=== PATIENT | female | born 1995 | race Asian ===

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

== ENCOUNTER 2018-02-03 13:25 | Emergency (ER) | payer OTHER ==
[~2018-02-03] VITALS: Ht 154.9 cm; Wt 66.6 kg
[2018-02-03 13:37] VITALS: TEMP 36.9; Ht 154.9 cm; Wt 66.6 kg
--- NOTE | 2018-02-03 13:54 | EMERGENCY ROOM VISIT NOTE ---
ED Visit Note First contact with patient: 13:44 CHIEF COMPLAINT: Right wrist injury HISTORY OF PRESENT ILLNESS: This patient is a 22-year-old female that presents to the emergency department complaining of pain in the right wrist since last night. The patient was trying to lift a heavy suitcase when she felt a pop in the right wrist. She is right-hand dominant. She has never injured this wrist before. The pain is worse with any movement. She has not taken anything over- the-counter for pain. She denies any pain into the elbow. She denies any other injuries. No numbness or tingling into the hand. REVIEW OF SYSTEMS: A 6 system review of systems was completed with positives and pertinent negatives listed in the HPI. ALLERGIES: No known drug allergies MEDICATIONS: None PMH: Otherwise healthy SOCIAL HISTORY: She does not smoke or drink alcohol. She is a [employer] student. PHYSICAL EXAM: Vital Signs: Reviewed Nurse's notes, vital signs stable. GENERAL : 22-year-old female, no acute distress, but appears in pain, well-developed, well-nourished. MENTAL STATUS: Alert, oriented to person place and time, and cooperative. MUSCULOSKELETAL: Mild tenderness over the ulnar aspect of the right wrist. Radial pulse +2. Pain with flexion and extension of the wrist. [employer] strength 5/5. Capillary refill in the fingers is less than 2 seconds. No tenderness over the rest of the forearm or elbow. EMERGENCY DEPARTMENT COURSE: I examined the patient. She declined pain medication.. X-rays of the right wrist were reviewed by myself and read by radiology IMPRESSION: 1. 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 2. No acute osseous injury. Electronically signed by: Edward Navas M.D. 02/03/2018 2:48 PM A wrist lacer was applied. Discharge instructions were reviewed. The patient was discharged home in good condition. DIAGNOSIS: Right wrist sprain DISCHARGE INSTRUCTIONS: Please wear the wrist lacer for support. Please take Tylenol 500 mg or ibuprofen 600 mg every 6 hours as needed for pain. If there is no improvement, please follow-up with orthopedics in 5 days. A number has been provided. It was a pleasure participating in your care today This chart was completed in part utilizing [employer] Voice Recognition software. Attempts were made to minimize the grammatical errors, random word insertions, pronoun errors and incomplete sentences. Any formal questions or concerns about the content, text or information contained within the body of this dictation should be directly addressed to the provider for clarification.
--- NOTE | 2018-02-03 14:50 | DIAGNOSTIC IMAGING REPORT ---
R WRIST W/NAVICULAR MIN 3 VIEWS CLINICAL HISTORY: 22 years-old Female presenting with R wrist pain over ulna. TECHNIQUE: Frontal, bilateral oblique, lateral, and scaphoid views of the right wrist were obtained. COMPARISON: None. FINDINGS: Exaggerated ulnar tilt of the radiocarpal articulations. There is also slightly exaggerated radial tilt of the ulna. The carpus is not interposed between the distal radial ulnar articulation. Abnormally decreased carpal angle. No acute fracture or malalignment. No advanced degenerative change. No radiographic soft tissue abnormality. IMPRESSION: 1. 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 2. No acute osseous injury. Electronically signed by: Edward Navas M.D. 02/03/2018 2:48 PM Dictated Date/Time: 02/03/2018 2:43 PM
[2018-02-03 15:30] VITALS: BP 127/84; PULSE 84; O2SAT 100
== END 2018-02-03 15:32 | disposition home or self-care (01) ==
LOC: C.EDB 13:25 → C.EDD 15:32
DX: S63.501A Unspecified sprain of right wrist, initial encounter (principal); X50.0XXA Overexertion from strenuous movement or load, initial encounter